=== PATIENT | female | born 1945 | race Caucasian/White ===

== ENCOUNTER 2023-07-22 08:14 | Emergency (ER) | payer MEDICARE, OTHER ==
[2023-07-22] MEDS: Albuterol 0.083% 2.5 MG/3 ML Neb Soln NEB ONE (08:55)
[2023-07-22 09:12] LABS: BASOPHILS ABSOLUTE AUTO 0.1 K/mm3 (0.0-0.2); BASOPHILS PERCENT AUTO 0.5 % (0.0-1.0); EOSINOPHILS ABSOLUTE AUTO 0.3 K/mm3 (0.0-0.4); EOSINOPHILS PERCENT AUTO 2.6 % (0.0-6.0); HEMATOCRIT 25.9 % (37.0-47.0); HEMOGLOBIN 8.1 gm/dl (12.0-16.0); IMMATURE GRAN ABSOLUTE AUTO 0.06 K/mm3 (0.00-0.05); IMMATURE GRAN PERCENT AUTO 0.5 % (0.0-0.4); LYMPHOCYTES ABSOLUTE AUTO 1.6 K/mm3 (1.0-4.8); LYMPHOCYTES PERCENT AUTO 14.8 % (24.0-44.0); MEAN CORPUSCULAR HEMOGLOBIN 31.6 pg (28.0-32.0); MEAN CORPUSCULAR HGB CONC 31.3 g/dl (32.0-36.0); MEAN CORPUSCULAR VOLUME 101.2 fl (83.0-99.0); MEAN PLATELET VOLUME 8.6 fl (9.4-12.3); MONOCYTES ABSOLUTE AUTO 0.5 K/mm3 (0.0-0.8); MONOCYTES PERCENT AUTO 4.9 % (0.0-8.0); NEUTROPHILS ABSOLUTE AUTO 8.4 K/mm3 (1.8-7.7); NEUTROPHILS PERCENT AUTO 76.7 % (41.0-71.0); PLATELET COUNT,PLT 292 K/mm3 (150-400); RED BLOOD CELL COUNT 2.56 M/mm3 (4.10-5.30); WHITE BLOOD CELL COUNT,WBC 10.94 K/mm3 (3.9-11.3)
[2023-07-22 09:43] LABS: A/G RATIO 0.9 (1-2); ALBUMIN 3.2 g/dl (3.4-5.0); ANION GAP 16.6 (5-15); BILIRUBIN TOTAL 0.4 mg/dL (0.2-1.0); BUN/CREATININE RATIO 6.2 (14-18); CALCIUM 8.7 mg/dL (8.5-10.1); CREATININE 7.7 mg/dL (0.55-1.02); EST CRCL DRUG DOSING (CG) 5.59 mL/min; POTASSIUM,K 4.6 mEq/L (3.5-5.1); PROTEIN TOTAL,TP 6.9 g/dl (6.4-8.2)
[2023-07-22] MEDS ORDERED: Iopamidol 755 Mg/ML 100 ML Bottle IVPUSH ONE (10:07)
[2023-07-22] MEDS ORDERED: Sodium Chloride 0.9% 10 ML Syringe FLUSH PRN (10:07)
[2023-07-22] MEDS ORDERED: Sodium Chloride 0.9% 100 ML IV SCH (10:15)
[2023-07-22] MEDS: Nitroglycerin 0.4 MG Tab.SL SL ONE (10:19)
[2023-07-22] MEDS: Ondansetron 4 MG/2 ML SDV IVPUSH ONE (10:30)
[2023-07-22] MEDS: DULoxetine 30 MG Cap PO SCH (19:46)
[2023-07-22] MEDS: Acetaminophen 325 MG Tab PO ONE (23:47)
[2023-07-23] MEDS: Allopurinol 100 MG Tab PO SCH (07:48)
[2023-07-23] MEDS: Levothyroxine 75 MCG Tab PO SCH (07:49)
[2023-07-23] MEDS: Pantoprazole 40 MG Tab.CR PO SCH (07:49)
[2023-07-23] MEDS: Sevelamer Carbonate 800 MG Tab PO SCH (08:20)
[2023-07-23] MEDS: Calcium Acetate 667 MG Cap PO SCH (08:20)
[2023-07-23 15:52] LABS: ANION GAP 13.6 (5-15); CALCIUM 9.1 mg/dL (8.5-10.1); POTASSIUM,K 3.6 mEq/L (3.5-5.1)
[2023-07-23 16:02] LABS: BUN/CREATININE RATIO 3.7 (14-18); EST CRCL DRUG DOSING (CG) 22.67 mL/min
[2023-07-23 16:03] LABS: CREATININE 1.9 mg/dL (0.55-1.02)
[2023-07-23] MEDS ORDERED: Sevelamer Carbonate 800 MG Tab PO SCH (18:28)
== END 2023-07-23 18:13 | disposition home or self-care (01) ==
LOC: JD.ED 08:14
DX: E87.79 Other fluid overload (principal); N18.6 End stage renal disease; Z99.2 Dependence on renal dialysis; Z79.899 Other long term (current) drug therapy; Z88.8 Allergy status to other drugs, medicaments and biological substances; Z91.048 Other nonmedicinal substance allergy status; Z91.041 Radiographic dye allergy status
CPT/HCPCS: 36415; 71045; 71275; 80048; 80053; 83880; 84484; 85025; 93005; 94640; 96374; 99285; A9270; J2405; 93010; 99284; J7620-GY